=== PATIENT | male | born 1965 | race Caucasian/White ===

== ENCOUNTER 2019-04-21 20:32 | Inpatient (IN) | payer MEDICAID, SELFPAY ==
[2019-04-21 20:34] VITALS: BP 90/78; PULSE 72; RESP 18; TEMP 37.1; O2SAT 96; BMI 28.8
--- NOTE | 2019-04-21 21:36 | EKG12_ITS ---
Test Reason : DIZZY Blood Pressure : / mmHG Vent. Rate : 063 BPM Atrial Rate : 063 BPM P-R Int : 160 ms QRS Dur : 074 ms QT Int : 396 ms P-R-T Axes : 045 036 047 degrees QTc Int : 405 ms Normal sinus rhythm Low voltage QRS Borderline ECG Confirmed by KAELA VILLALTA, IVAN ([id number]), mapping editor ANJELICA FRIEDMAN ([id number]) on 04/23/2019 12:27:03 PM Referred By: Confirmed By:ALLAN SHERWOOD MD
--- NOTE | 2019-04-21 21:36 | CT_ITS ---
HISTORY:DIZZY X FEW DAYS. Hx of prior CVA, [place] with heart stent DIZZY X FEW DAYS. Hx of prior CVA, [place] with heart stent TECHNIQUE: Multiple axial images were obtained of the brain without intravenous contrast. A radiation dose optimization technique was used for this scan. IV Contrast dosage and agent: None. COMPARISON: None FINDINGS: # of images incl. paperwork: 246 INFARCT: None HEMORRHAGE: None PARENCHYMAL ATTENUATION:Normal for age MASS: None MIDLINE SHIFT: None BASAL CISTERNS: Patent VENTRICLES: Normal in size and configuration for age PARANASAL SINUSES:Mucous retention cystin the right maxillary sinus MASTOID AIR CELLS: Clear ORBITS:No acute pathology CALVARIUM: No acute pathology OTHER TISSUES: No acute pathology ASPECTS Score for Acute Strokes: 10 CT/Brain/Head without Contrast IMPRESSION: No acute intracranial pathology. If symptoms persist consider mri for further evaluation if clinically indicated. Individualized dose optimization techniques were used for this CT. at 2226 Reported and signed by: Yasmin Radford DO Electronically Signed: Yasmin Radford DO at 22:25 EDT Tel , Service support ,
--- NOTE | 2019-04-21 21:38 | RAD_ITS ---
HISTORY:dizziness dizziness EXAM: XR Chest 1 View: COMPARISON: None FINDINGS: # of images incl. paperwork: 1 LINES/DEVICES: None. LUNGS: Radiographically clear. No consolidation, edema or effusion. No pneumothorax. MEDIASTINUM AND CARDIOVASCULAR STRUCTURES: Cardiac silhouette not enlarged. BONES AND SOFT TISSUES: Unremarkable. RAD/Chest 1 View (Portable) IMPRESSION: No radiographic evidence of acute cardiopulmonary disease. at 2202 Reported and signed by: Yasmin Radford DO Electronically Signed: Yasmin Radford DO at 22:01 EDT Tel , Service support ,
[2019-04-21 22:03] VITALS: BP 101/89; BP 65/58; BP 83/53; PULSE 68; PULSE 72; PULSE 74
[2019-04-21 22:06] LABS: Absolute Lymphocyte Count 2.49 X10^3/ul (0.83-4.51); Absolute Neutrophil Count 6.9 X10^3/uL (2.0-7.7); Basophil# 0.04 X10^3/uL; Basophil% 0.4 % (0-1); Eosinophil# 0.13 X10^3/uL; Eosinophils% 1.2 % (0-5); Hematocrit 45.1 % (40-54); Hemoglobin 15.6 g/dl (13.0-16.5); Lymphocyte # 2.49 X10^3/ul (4.0); Lymphocyte % 23.4 % (19-41); Mean Corp Hgb Conc 34.6 g/gl (32-36); Mean Corpuscular Hgb 29.9 pg (27.0-32.0); Mean Corpuscular Volume 86.6 fL (80-94); Mean Platelet Vol. 10.4 fl (6.2-12.0); Monocyte# 1.04 X10^3/uL; Monocyte% 9.8 % (0-10); Neutrophil % 64.8 % (47-70); POSITIVE COUNT NO; POSITIVE DIFFERENTIAL NO; POSITIVE MORPHOLOGY NO; Platelet Count 248 K/mm3 (150-450); RBC Distribution Width CV 13.1 % (11.6-14.6); Red Blood Count 5.21 M/mm3 (4.6-6.2); White Blood Count 10.6 K/mm3 (4.4-11.0)
[2019-04-21 22:19] LABS: Anion Gap 9 (5-15); BUN 62 mg/dL (7-18); BUN/Creat Ratio 12.7 RATIO (10-20); Chloride 102 mmol/L (98-107); Creatinine, Serum 4.87 mg/dL (0.70-1.30); EST Glomerular Filtration Rate 13 mL/min (>60); Est Glom Filt Rate - Afr Amer 16 mL/min (>60); Estimated Creatinine Clearance 16.58 ml/min; Glucose 101 mg/dL (74-106); Potassium 4.4 mmol/L (3.5-5.1); Sodium Level 136 mmol/L (136-145)
[2019-04-21] MEDS: Meclizine HCl 25 MG Tablet PO (22:19)
--- NOTE | 2019-04-21 22:41 | ED.VISSUMM ---
- ER Visit Summary Date of Service: 04/21/19 Chief Complaint: Dizziness History of Present Illness: The patient is a 54 M presenting with dizziness. He states this has been ongoing for the past 3 days. He states he felt lightheaded with near syncope. He also complains of a spinning sensation. He denies chest pain. He has had mild shortness of breath with cough. He denies fever. Denies abdominal pain, nausea, vomiting, diarrhea. He denies headache. He has had bilateral upper and lower extremity paresthesias. He states he has been feeling anxious. He feels that he may be dehydrated. Denies other complaints. Physical Examination: Vitals are stable. Patient is afebrile. Alert no acute distress. HEENT exam is unremarkable. Neck is supple. Lungs are clear and equal bilaterally. Heart is regular rate and rhythm. Abdomen is soft nontender nondistended. Extremities are unremarkable. Skin is warm and dry. No focal neurologic deficit. Normal strength and sensation Remainder of exam is unremarkable. Emergency Department Course and Treatment: EKG is sinus rhythm rate of 63 with no acute ischemic changes. With orthostatic vital signs he was hypotensive with both lying and standing and normotensive with sitting. He was given IV fluids, meclizine. Chest x-ray shows no acute process. CT head shows no acute process. CBC is unremarkable. Chemistry shows BUN 62, creatinine 4.87. Troponin is negative. Patient states he has never been told in the past that he has any type of kidney problems. Discussed with the hospitalist for admission. Disposition: Admission Impression: Dizziness, GABRIELA This note was generated with [employer] dictation software. It may contain incorrect words, spelling, and punctuation that were not noted in review of the chart prior to signing ED Disposition - Plan for ED Patient: Referrals: Xochitl Horton DO [Primary Care Provider] -
--- NOTE | 2019-04-21 22:48 | PCM.HP.STD ---
Problem List (1) Hypotension Status: Acute Qualifiers: Hypotension type: unspecified hypotension type Qualified Code(s): I95.9 - Hypotension, unspecified (2) Hypertension Status: Chronic Qualifiers: Hypertension type: essential hypertension Qualified Code(s): I10 - Essential (primary) hypertension (3) CAD (coronary artery disease) Status: Chronic Qualifiers: Coronary Disease-Associated Artery/Lesion type: [place] artery [place] vs. transplanted heart: [place] heart Associated angina: angina presence unspecified Qualified Code(s): I25.10 - Atherosclerotic heart disease of [place] coronary artery without angina pectoris History of Present Illness Date of Admission: 04/22/19 Chief Complaint: Dizziness - 3 days The patient is a 54 year old M with past medical history of CAD status post DC, hypertension, history of CVA who gets most of his care in the [facility] comes in with complaints of dizziness ongoing for 3 days. Patient is in [place] visiting his girlfriend. He complains of feeling dizzy when he stands up and moves around. Denies any palpitations or chest pain or fever or chills. No sick contact. No nausea or vomiting or diarrhea. He admits to being outside for several hours in the heat mowing the yard. He admits to some having shortness of breath on exertion. He has not been drinking enough water His vitals were temp 98.8F, HR 72, BP 90/78, rr 18, Spo2 96% on room air. Patient was orthostatic positive from sitting to standing. His admitting blood work showed BUN of 62, creatinine 4.87. No labs to compare. EKG shows normal sinus rhythm, no acute ST-T changes. CT scan of the brain is negative. Chest X-ray shows no acute cardiopulmonary disease. Past Medical History Past Medical History (Chronic Problems): Chronic Problems Hypertension (Chronic) CAD (coronary artery disease) (Chronic) Allergies No Known Allergies Allergy (Verified 04/21/19 20:38) Home Medications: Ambulatory Orders Medication Instructions Recorded Aspirin E.C. [Ecotrin] 81 mg PO DAILY@0800 04/21/19 Atorvastatin Calcium 80 mg PO DAILY 04/21/19 Clopidogrel Bisulfate [Plavix] 75 mg PO DAILY 04/21/19 Lisinopril 20 mg PO DAILY 04/21/19 Metoprolol Succinate [Toprol Xl] 100 mg PO DAILY 04/21/19 Spironolactone 25 mg PO DAILY 04/21/19 Surgical History: appendectomy Psychiatric History: No pertinent psych hx Lives: Spouse/ Significant Other Smoking Status: Current every day smoker Tobacco Use: Cigarettes Alcohol: None Drugs: None Review of Systems Constitutional: Denies: Anorexia, Chills, Fever, Night Sweats, Malaise, Weakness, Weight Change Eyes: Denies: Blurred vision, Cataracts, Conjunctivae Inflammation, Pain, Redness HEENT: Denies: Difficulty Hearing, Difficulty Swallowing, Head Aches, Hearing Changes, Sinus Congestion, Sinus Drainage, Sore Throat Cardiovascular: Reports: Light Headedness. Denies: Chest Pain, Claudication, Orthopnea, Palpitations, Paroxysmal Noc. Dyspnea Respiratory: Denies: Cough, Hemoptysis, Shortness of breath at rest, Shortness of breath upon exertion, Sputum production Gastrointestinal: Denies: Abdominal Pain, Constipation, Hematemesis, Hematochezia, Nausea, Vomiting Genitourinary: Denies: Dysuria Musculoskeletal: Denies: Joint Pain, Joint stiffness, Joint swelling, Joint Tenderness Skin: Denies: Rash, Wounds Neurological: Denies: Difficulty swallowing, Focal weakness, Numbness, Tingling Psychiatric: Denies: Anxiety, Depression, Homicidal Ideations, Suicidal Ideations Hematologic/ Lymphatic: Denies: Easy Bruising, Easy Bleeding VTE Information - Inpt Only VTE Present on Admission: No VTE Pharm Prophylaxis ordered?: Yes Patient Problems: Active and Suspected Problems Hypotension (Acute) - Physical Exam General: Alert, Oriented x3, Cooperative, No apparent distress HEENT: Atraumatic, PERRLA, EOMI, Normocephalic Oral: Dry Mucosa Neck: Supple Lungs: Clear to auscultation, Normal air movement Cardiovascular: Regular rate, Regular Rhythm, Normal S1, Normal S2, No murmurs Abdomen: Bowel Sounds Present, Soft, Non Tender, Non-Distended, No Hepato-splenomegaly Extremities: No edema Skin: No rashes, No breakdown Musculoskeletal: No Tenderness to Palpation of Joints or Extremities Lymphatic: No Cervical, Supraclavicular, or Inguinal Adenopathy Neurological: Cranial nerves II-XII grossly intact, Neuro grossly intact Psych/Mental Status: Normal Affect, Appropriate Vital Signs Temp Pulse Resp BP Pulse Ox 98.8 F 68 18 65/58 L 96 04/21/19 20:34 04/21/19 22:03 04/21/19 20:34 04/21/19 22:03 04/21/19 20:34 Oxygen Delivery Method Room Air Weight: 85.91 kg Body Mass Index (BMI) 28.8 Laboratory Tests Past 24 Hrs 04/21/19 04/21/19 21:48 21:48 WBC 10.6 RBC 5.21 Hgb 15.6 Hct 45.1 MCV 86.6 MCH 29.9 MCHC 34.6 RDW 13.1 RDW Differential 42.0 Plt Count 248 MPV 10.4 Immature Gran % (Auto) 0.400 Neut % (Auto) 64.8 Lymph % (Auto) 23.4 [place] % (Auto) 9.8 Eos % (Auto) 1.2 Baso % (Auto) 0.4 Absolute Neuts (auto) 6.9 Absolute Lymphs (auto) 2.49 Total Counted Not Reportable Sodium 136 Potassium 4.4 Chloride 102 Carbon Dioxide 25.0 Anion Gap 9 BUN 62 H Creatinine 4.87 H Estim Creat Clear Calc 16.58 Est GFR (MDRD) Af Amer 16 L Est GFR (MDRD) Non-Af 13 L BUN/Creatinine Ratio 12.7 Glucose 101 Calcium 9.0 Troponin I < 0.015 Assessment/Plan All Active Problems Hypotension (Acute) 54 year old M with past medical history of CAD status post DC, hypertension, history of CVA who gets most of his care in the [facility] comes in with complaints of dizziness ongoing for 3 days. 1. Hypotension secondary to dehydration, poor p.o. intake, blood pressure medications, being in the heat or days Less likely to be cardiac, history of CAD status post MIs, unknown EF. EKG shows no acute ST-T changes Plan: Admit to PCU, continue IV fluids, 2D echo, trend troponins, 2. Acute kidney injury, pre-renal from dehydration and ACEI use, bladder scan showed bladder volume of 49 FENA 0.57, will continue on IVF, 3. Hypertension, BP meds on hold for now, will continue to monitor 4. CAD s/p MIs, CVA, will get records from [facility], continue on aspirin, Plavix, statin 5. Nicotine dependence, on replacement 6. DVT PPx- Heparin SC Code Visit Inpatient E&M: 69030 Init Hosp L3
[2019-04-21 22:49] VITALS: BP 73/40; PULSE 70; RESP 18
[2019-04-21] MEDS: 0.9% Normal Saline 1,000 ML 999 ML IV (23:18)
[2019-04-21 23:41] VITALS: BMI 28.8; BMI 29.5
--- NOTE | 2019-04-21 23:48 | NURSING ---
PATIENT STATES HIS PHARMACY IS [facility]. CANNOT FIND IN ADMISSION SEARCH.
[2019-04-21 23:49] VITALS: BP 89/54; PULSE 66; RESP 18; TEMP 36.6; O2SAT 99
[2019-04-22] VITALS (11 sets, daily range): BP systolic 91–106; BP diastolic 47–61; PULSE 54–71; RESP 14–18; TEMP 36.6–36.9; O2SAT 95–98
[2019-04-22] MEDS: 0.9% Normal Saline 1,000 ML 150 ML IV ×4 (00:16→22:19)
[2019-04-22 02:14] LABS: Urine Sodium 67 mmol/L (Not Establ.)
--- NOTE | 2019-04-22 02:54 | ECHOCS_ITS ---
Reason For Study: HYPOTENSION Procedure This was a 2D Doppler, Color Flow transthoracic echocardiogram. The study was technically limited. The study was technically difficult. Exam performed portable in patient room. Left Ventricle Normal size and thickness. The estimated ejection fraction is 60 %. No evidence for diastolic dysfunction. No regional wall motion abnormalities noted. Right Ventricle Normal RV size. Normal systolic function. Atria Normal left atrium. Normal right atrium. Mitral Valve There is no stenosis. No mitral valve insufficiency. Tricuspid Valve There is no tricuspid stenosis. Trivial tricuspid valve insufficiency. Pulmonary artery systolic pressure is 40 mmHg. Aortic Valve There is no aortic stenosis. No aortic valve insufficiency. Pulmonic Valve There is no pulmonic valvular stenosis. No pulmonic valve insufficiency. Great Vessels Normal aortic root. Pericardium/Pleural No pericardial effusion. Medication Diluted definity 4ml given slow IV push to enhance endocardial definition. MMode/2D Measurements & Calculations LVIDd: 4.8 cm IVSd: 1.0 cm Ao root diam: 2.9 cm LVIDs: 3.2 cm LVPWd: 1.1 cm RVDd: 3.6 cm FS: 33.6 % LAV(MOD-bp): 37.8 ml LVAd ap4: 32.7 cm2 SV(MOD-sp4): 56.8 ml LAV(MOD-bp) Indexed: 18.7 ml/m2 EDV(MOD-sp4): 107.5 ml LAV(MOD-sp2): 37.1 ml EDV(sp4-el): 113.5 ml LAV(MOD-sp4): 35.5 ml LVAs ap4: 20.0 cm2 ESV(MOD-sp4): 50.7 ml ESV(sp4-el): 52.7 ml EF(MOD-sp4): 52.8 % EF(sp4-el): 53.5 % SV(sp4-el): 60.8 ml LA A4 area: 14.2 cm2 LA dimension(2D): 3.3 cm RA A4 area: 16.3 cm2 Time Measurements MV dec time: 0.26 sec Doppler Measurements & Calculations MV E max arnold: 83.5 cm/sec Lat Peak E' Arnold: 10.7 cm/sec Med Peak E' Arnold: 8.5 cm/sec MV A max arnold: 75.2 cm/sec E/E' lat: 7.8 E/E' med: 9.8 MV E/A: 1.1 Ao V2 max: 113.4 cm/sec LV V1 max: 103.8 cm/sec TR max arnold: 277.4 cm/sec Ao max P.2 mmHg LV V1 max P.3 mmHg TR max P.9 mmHg Interpretation Summary Diluted definity 4ml given slow IV push to enhance endocardial definition. The estimated ejection fraction is 60 %. No evidence for diastolic dysfunction. The study was technically difficult. Ordering Physician: Vijaya Mohan Referring Physician: KRISTOFER COREA Performed By: Jess Brooks, YOAN, RVT
[2019-04-22] MEDS: Heparin Injection (Vial) 5,000 UNIT/ML VIAL 5000 UNIT SC ×3 (05:14→22:02)
[2019-04-22 07:37] LABS: ALB/GLOB Ratio 0.9 RATIO (0.9-2.4); AST(SGOT) 19 U/L (15-37); Alanine Aminotransfer ALT/SGPT 23 U/L (16-61); Albumin, Serum 2.9 g/dL (3.2-5.0); Alkaline Phosphatase 80 U/L (45-117); Anion Gap 4 (5-15); BUN 59 mg/dL (7-18); BUN/Creat Ratio 18.9 RATIO (10-20); Calcium,Total 7.7 mg/dL (8.5-10.1); Chloride 111 mmol/L (98-107); Cholesterol 112 mg/dL (200); Creatinine, Serum 3.12 mg/dL (0.70-1.30); EST Glomerular Filtration Rate 22 mL/min (>60); Est Glom Filt Rate - Afr Amer 27 mL/min (>60); Estimated Creatinine Clearance 25.88 ml/min; Globulin 3.4 g/dL (2.2-4.2); Glucose 106 mg/dL (74-106); High Density Lipoprotein 21 mg/dL; Potassium 4.7 mmol/L (3.5-5.1); Protein, Total 6.3 g/dL (6.4-8.2); Sodium Level 140 mmol/L (136-145); Triglycerides 142 mg/dL; Very Low Density Lipoprotein 28 mg/dL (5-40)
[2019-04-22 07:56] LABS: Absolute Lymphocyte Count 2.44 X10^3/ul (0.83-4.51); Absolute Neutrophil Count 5.2 X10^3/uL (2.0-7.7); Basophil# 0.03 X10^3/uL; Basophil% 0.3 % (0-1); Eosinophil# 0.16 X10^3/uL; Eosinophils% 1.8 % (0-5); Hematocrit 38.6 % (40-54); Hemoglobin 12.9 g/dl (13.0-16.5); Lymphocyte # 2.44 X10^3/ul (4.0); Lymphocyte % 27.7 % (19-41); Mean Corp Hgb Conc 33.4 g/gl (32-36); Mean Corpuscular Hgb 29.4 pg (27.0-32.0); Mean Corpuscular Volume 87.9 fL (80-94); Mean Platelet Vol. 10.6 fl (6.2-12.0); Monocyte# 0.94 X10^3/uL; Monocyte% 10.7 % (0-10); Neutrophil # 5.22 X10^3/uL (2.7-7.7); Neutrophil % 59.2 % (47-70); Platelet Count 209 K/mm3 (150-450); RBC Distribution Width CV 13.2 % (11.6-14.6); RBC Distribution Width SD 42.4 fl (35.1-43.9); Red Blood Count 4.39 M/mm3 (4.6-6.2); White Blood Count 8.8 K/mm3 (4.4-11.0)
[2019-04-22 08:02] LABS: POSITIVE COUNT NO; POSITIVE DIFFERENTIAL NO; POSITIVE MORPHOLOGY NO
--- NOTE | 2019-04-22 08:29 | US_ITS ---
HISTORY:GABRIELA Ultrasound kidneys No priors Findings: The right kidney measures 10.9 x 4.7 x 4.6 cm. The cortex is preserved measuring 1.4 cm. There is no evidence of hydronephrosis or nephrolithiasis. There is a peripelvic cyst measuring 1.6 x 1.5 x 1.5 cm. Vascular flow is seen within the right kidney The left kidney measures 10.3 x 4.7 x 5.2 cm with cortex measuring 1.4 cm. No hydronephrosis or nephrolithiasis. There is vascular flow. Bladder volume is 81.09. The wall is mildly thickened measuring 3.4 mm however this may be secondary to incomplete distention. Correlate clinically for cystitis Bilateral ureteral jets are noted US/Kidney and Bladder IMPRESSION: Right renal peripelvic cyst Slightly thickened bladder wall which may be secondary to poor distention. Correlate clinically for cystitis at 1826 Reported and signed by: Yasmin Radford DO Electronically Signed: Yasmin Radford DO at 18:25 EDT Tel , Service support ,
[2019-04-22] MEDS: Aspirin E.C. 81 MG Tablet PO (10:58)
[2019-04-22] MEDS: Clopidogrel Bisulfate 75 MG Tablet PO (10:58)
--- NOTE | 2019-04-22 11:17 | PCM.CONS.R ---
Problem List (1) Acute kidney failure Status: Acute Consultation - Renal PCP/ Referring MD: Requesting physician: [] Primary care physician: Xochitl Horton DO - History of Present Illness History of Present Illness: The patient is a 54 year old M PMH of CAD with [place] , HTN, CVA. Pt presented with h/o 3 days of dizziness when he stands up and moves around. In ED he was found to have + orthostatic VS along with GABRIELA with Cr up to 4.8 mg/dL. Pt was on aldactone and lisinopril at home Pt received 2.5 L of NS in ED and kept on NS at 150 cc /hour. Home BP meds were stopped Renal team was consulted for GABRIELA. Unknown if the patient has CKD. Pt denied h/o of CKD Pt denied NSIADs use. Admitted being outside in [place] a lot lately. No recent IV contrast exposure No skin rash. No joint pain. No edema No urinary obstructive symptoms ROS: 12 systems review is negative today] - Allergies Allergies: Allergies No Known Allergies Allergy (Verified 04/21/19 20:38) - Current Medications Current Medications: Current Medications Acetaminophen (Tylenol) 650 mg PO Q6H PRN PRN PRN Reason: Mild pain 1-3/Temp > 100.7 F Albuterol Sulfate (Ventolin Aerosols) 2.5 mg INHALATION Q2H PRN PRN PRN Reason: SOB/Wheezing Aspirin (Ecotrin) 81 mg PO DAILY@0800 [facility] Last Admin: 04/22/19 10:58 Dose: 81 mg Documented by: Atorvastatin Calcium (Lipitor) 80 mg PO DAILY@2200 [facility] Clopidogrel Bisulfate (Plavix) 75 mg PO DAILY [facility] Last Admin: 04/22/19 10:58 Dose: 75 mg Documented by: Heparin Sodium (Porcine) (Heparin Na) 5,000 unit SC Q8 [facility] Last Admin: 04/22/19 05:14 Dose: 5,000 unit Documented by: Sodium Chloride () 1,000 mls @ 150 mls/hr IV .Q6H40M [facility] Last Admin: 04/22/19 07:11 Dose: 150 mls/hr Documented by: Morphine Sulfate () 1 mg IV Q4H PRN PRN PRN Reason: Severe Pain (7-10/10) Nicotine (Nicoderm Cq (Pbkc)) 21 mg TRANSDERM. DAILY [facility] Last Admin: 04/22/19 10:58 Dose: Not Given Documented by: Nicotine Polacrilex ([place] Nicotine (Bkc)) 2 mg PO Q2H PRN PRN PRN Reason: Nicotine Craving Nitroglycerin (Nitrostat) 0.4 mg SUBLINGUAL Q5M PRN PRN Reason: CARDIAC/CHEST PAIN Sodium Chloride () 10 - 40 ml IV UD PRN PRN Reason: SALINE FLUSH - Past Medical History Past Medical History (Chronic Problems): Chronic Problems Hypertension (Chronic) CAD (coronary artery disease) (Chronic) - Past Surgical History Surgical History: appendectomy - Social History Smoking Status: Current every day smoker Alcohol: None Drugs: None Patient Problems: Active and Suspected Problems Hypotension (Acute) Acute kidney failure (Acute) - Physical Exam General: Alert, Oriented x3 HEENT: Atraumatic Oral: Moist Mucosa Neck: Supple, No JVD Lungs: Clear to auscultation, Normal air movement, No rhonchi, No wheeze, No rales Cardiovascular: Regular rate, Regular Rhythm, Normal S1, Normal S2 Abdomen: Bowel Sounds Present, Soft, Non Tender, Non-Distended Extremities: No clubbing, No cyanosis, No edema Skin: No rashes Musculoskeletal: No Tenderness to Palpation of Joints or Extremities Lymphatic: No Cervical, Supraclavicular, or Inguinal Adenopathy Neurological: Cranial nerves II-XII grossly intact, Neuro grossly intact Psych/Mental Status: Normal Affect Vital Signs Temp Pulse Resp BP Pulse Ox 97.8 F 54 L 16 106/51 L 96 04/22/19 10:56 04/22/19 10:56 04/22/19 10:56 04/22/19 10:56 04/22/19 10:56 Oxygen Delivery Method Room Air Weight: 88.3 kg Body Mass Index (BMI) 29.5 Intake and Output for Last 24 Hours 04/20/19 04/21/19 04/22/19 23:59 23:59 23:59 Intake Total 1597.2 / 1597.2 Output Total 400 / 400 Balance 1197.2 / 1197.2 Laboratory Tests Past 24 Hrs 04/21/19 04/21/19 04/22/19 21:48 21:48 01:35 WBC 10.6 RBC 5.21 Hgb 15.6 Hct 45.1 MCV 86.6 MCH 29.9 MCHC 34.6 RDW 13.1 RDW Differential 42.0 Plt Count 248 MPV 10.4 Immature Gran % (Auto) 0.400 Neut % (Auto) 64.8 Lymph % (Auto) 23.4 [place] % (Auto) 9.8 Eos % (Auto) 1.2 Baso % (Auto) 0.4 Absolute Neuts (auto) 6.9 Absolute Lymphs (auto) 2.49 Total Counted Not Reportable Sodium 136 Potassium 4.4 Chloride 102 Carbon Dioxide 25.0 Anion Gap 9 BUN 62 H Creatinine 4.87 H Estim Creat Clear Calc 16.58 Est GFR (MDRD) Af Amer 16 L Est GFR (MDRD) Non-Af 13 L BUN/Creatinine Ratio 12.7 Glucose 101 Calcium 9.0 Total Bilirubin AST ALT Alkaline Phosphatase Troponin I < 0.015 Total Protein Albumin Globulin Albumin/Globulin Ratio Triglycerides Cholesterol LDL Cholesterol VLDL Cholesterol HDL Cholesterol Ur Random Sodium Urine Creatinine 421.00 04/22/19 04/22/19 04/22/19 01:35 07:10 07:10 WBC 8.8 RBC 4.39 L Hgb 12.9 L Hct 38.6 L MCV 87.9 MCH 29.4 MCHC 33.4 RDW 13.2 RDW Differential 42.4 Plt Count 209 MPV 10.6 Immature Gran % (Auto) 0.300 Neut % (Auto) 59.2 Lymph % (Auto) 27.7 [place] % (Auto) 10.7 H Eos % (Auto) 1.8 Baso % (Auto) 0.3 Absolute Neuts (auto) 5.2 Absolute Lymphs (auto) 2.44 Total Counted Not Reportable Sodium 140 Potassium 4.7 Chloride 111 H Carbon Dioxide 25.0 Anion Gap 4 L BUN 59 H Creatinine 3.12 H Estim Creat Clear Calc 25.88 Est GFR (MDRD) Af Amer 27 L Est GFR (MDRD) Non-Af 22 L BUN/Creatinine Ratio 18.9 Glucose 106 Calcium 7.7 L Total Bilirubin 0.20 AST 19 ALT 23 Alkaline Phosphatase 80 Troponin I Total Protein 6.3 L Albumin 2.9 L Globulin 3.4 Albumin/Globulin Ratio 0.9 Triglycerides 142 Cholesterol 112 LDL Cholesterol 63 VLDL Cholesterol 28 HDL Cholesterol 21 L Ur Random Sodium 67 Urine Creatinine Assessment/Plan All Active Problems Hypotension (Acute) Acute kidney failure (Acute) 1- GABRIELA . Unknown if the patient has CKD at baseline GABRIELA is most probably prerenal from insensible fluid loss, low BP Cr peaked at 4.8 mg/dL. 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 continue holding BP meds Thank you for the consult. Renal team will continue to follow Please call if any question at [phone] Will d/w Dr. Lise Hernandez MD
--- NOTE | 2019-04-22 12:32 | CASEMGMT ---
This RN CM to room to complete CM assessment at this time and pt is sleeping without distress at this time. Pt does not awaken to knock on the door or verbal stimuli at this time. Will attempt again later. [place] RN CM
--- NOTE | 2019-04-22 13:02 | PCM.PROGNOTE ---
<Wayne Balbuena - Last Filed: 04/22/19 13:02> Patient Problems: Active and Suspected Problems Hypotension (Acute) Acute kidney failure (Acute) Subjective: No further LH/Dizziness. Urine is becoming more clear - observed at highlighter yellow. No fever/chills. No abdominal pain. Renal function and BP improving. Pt states he knew he was dehydrated yesterday. - Physical Exam General: Alert, Oriented x3, Cooperative HEENT: Atraumatic, PERRLA, EOMI, Normocephalic Neck: Supple, No JVD, Negative Carotid Bruits Lungs: Clear to auscultation, Normal air movement Cardiovascular: Regular rate, No murmurs Abdomen: Bowel Sounds Present, Soft, Non Tender Extremities: No edema, Capillary Refill Less than 3 Seconds Skin: No rashes, No breakdown Musculoskeletal: No Tenderness to Palpation of Joints or Extremities Neurological: Cranial nerves II-XII grossly intact Psych/Mental Status: Normal Affect, Appropriate, Alert and oriented to time, place, person, mood and affect Vital Signs Temp Pulse Resp BP Pulse Ox 97.8 F 54 L 16 106/51 L 96 04/22/19 10:56 04/22/19 10:56 04/22/19 10:56 04/22/19 10:56 04/22/19 10:56 Oxygen Delivery Method Room Air Weight: 194 lb 10.691 oz Body Mass Index (BMI) 29.5 Intake and Output for Last 24 Hours 04/20/19 04/21/19 04/22/19 23:59 23:59 23:59 Intake Total 2688.2 / 2688.2 Output Total 725 / 725 Balance 1963.2 / 1963.2 Laboratory Tests Past 24 Hrs 04/21/19 04/21/19 04/22/19 21:48 21:48 01:35 WBC 10.6 RBC 5.21 Hgb 15.6 Hct 45.1 MCV 86.6 MCH 29.9 MCHC 34.6 RDW 13.1 RDW Differential 42.0 Plt Count 248 MPV 10.4 Immature Gran % (Auto) 0.400 Neut % (Auto) 64.8 Lymph % (Auto) 23.4 [place] % (Auto) 9.8 Eos % (Auto) 1.2 Baso % (Auto) 0.4 Absolute Neuts (auto) 6.9 Absolute Lymphs (auto) 2.49 Total Counted Not Reportable Sodium 136 Potassium 4.4 Chloride 102 Carbon Dioxide 25.0 Anion Gap 9 BUN 62 H Creatinine 4.87 H Estim Creat Clear Calc 16.58 Est GFR (MDRD) Af Amer 16 L Est GFR (MDRD) Non-Af 13 L BUN/Creatinine Ratio 12.7 Glucose 101 Calcium 9.0 Total Bilirubin AST ALT Alkaline Phosphatase Troponin I < 0.015 Total Protein Albumin Globulin Albumin/Globulin Ratio Triglycerides Cholesterol LDL Cholesterol VLDL Cholesterol HDL Cholesterol Ur Random Sodium Urine Creatinine 421.00 04/22/19 04/22/19 04/22/19 01:35 07:10 07:10 WBC 8.8 RBC 4.39 L Hgb 12.9 L Hct 38.6 L MCV 87.9 MCH 29.4 MCHC 33.4 RDW 13.2 RDW Differential 42.4 Plt Count 209 MPV 10.6 Immature Gran % (Auto) 0.300 Neut % (Auto) 59.2 Lymph % (Auto) 27.7 [place] % (Auto) 10.7 H Eos % (Auto) 1.8 Baso % (Auto) 0.3 Absolute Neuts (auto) 5.2 Absolute Lymphs (auto) 2.44 Total Counted Not Reportable Sodium 140 Potassium 4.7 Chloride 111 H Carbon Dioxide 25.0 Anion Gap 4 L BUN 59 H Creatinine 3.12 H Estim Creat Clear Calc 25.88 Est GFR (MDRD) Af Amer 27 L Est GFR (MDRD) Non-Af 22 L BUN/Creatinine Ratio 18.9 Glucose 106 Calcium 7.7 L Total Bilirubin 0.20 AST 19 ALT 23 Alkaline Phosphatase 80 Troponin I Total Protein 6.3 L Albumin 2.9 L Globulin 3.4 Albumin/Globulin Ratio 0.9 Triglycerides 142 Cholesterol 112 LDL Cholesterol 63 VLDL Cholesterol 28 HDL Cholesterol 21 L Ur Random Sodium 67 Urine Creatinine Medical Necessity - Tobacco Use Smoking Status: Current every day smoker Tobacco Use: Cigarettes Assessment/Plan All Active Problems Hypotension (Acute) Acute kidney failure (Acute) 1. GABRIELA 2/2 dehydration + antihypertensives - hold orals. Continue IV fluids. Good output. Renal US pending. Nephro following. CT brain neg. Symptoms resolving. Orthos + at time of admission. Recheck in AM. 2. CAD - hx MA. continue asa/statin/plavix 3. HTN - as above 4. Nicotine abuse - patch DVT ppx: heparin DC planning: likely home tomorrow no needs This patient was seen by Wayne Balbuena PA-C under the supervision of Dr. Junior. <Shani Junior Francisca - Last Filed: 04/22/19 16:20> - Physical Exam Vital Signs Temp Pulse Resp BP Pulse Ox 97.8 F 66 16 106/51 L 96 04/22/19 10:56 04/22/19 15:00 04/22/19 10:56 04/22/19 10:56 04/22/19 10:56 Oxygen Delivery Method Room Air Weight: 194 lb 10.691 oz Body Mass Index (BMI) 29.5 Intake and Output for Last 24 Hours 04/20/19 04/21/19 04/22/19 23:59 23:59 23:59 Intake Total 2688.2 / 2688.2 Output Total 725 / 725 Balance 1963.2 / 1963.2 Laboratory Tests Past 24 Hrs 04/21/19 04/21/19 04/22/19 21:48 21:48 01:35 WBC 10.6 RBC 5.21 Hgb 15.6 Hct 45.1 MCV 86.6 MCH 29.9 MCHC 34.6 RDW 13.1 RDW Differential 42.0 Plt Count 248 MPV 10.4 Immature Gran % (Auto) 0.400 Neut % (Auto) 64.8 Lymph % (Auto) 23.4 [place] % (Auto) 9.8 Eos % (Auto) 1.2 Baso % (Auto) 0.4 Absolute Neuts (auto) 6.9 Absolute Lymphs (auto) 2.49 Total Counted Not Reportable Sodium 136 Potassium 4.4 Chloride 102 Carbon Dioxide 25.0 Anion Gap 9 BUN 62 H Creatinine 4.87 H Estim Creat Clear Calc 16.58 Est GFR (MDRD) Af Amer 16 L Est GFR (MDRD) Non-Af 13 L BUN/Creatinine Ratio 12.7 Glucose 101 Calcium 9.0 Total Bilirubin AST ALT Alkaline Phosphatase Troponin I < 0.015 Total Protein Albumin Globulin Albumin/Globulin Ratio Triglycerides Cholesterol LDL Cholesterol VLDL Cholesterol HDL Cholesterol Ur Random Sodium Urine Creatinine 421.00 04/22/19 04/22/19 04/22/19 01:35 07:10 07:10 WBC 8.8 RBC 4.39 L Hgb 12.9 L Hct 38.6 L MCV 87.9 MCH 29.4 MCHC 33.4 RDW 13.2 RDW Differential 42.4 Plt Count 209 MPV 10.6 Immature Gran % (Auto) 0.300 Neut % (Auto) 59.2 Lymph % (Auto) 27.7 [place] % (Auto) 10.7 H Eos % (Auto) 1.8 Baso % (Auto) 0.3 Absolute Neuts (auto) 5.2 Absolute Lymphs (auto) 2.44 Total Counted Not Reportable Sodium 140 Potassium 4.7 Chloride 111 H Carbon Dioxide 25.0 Anion Gap 4 L BUN 59 H Creatinine 3.12 H Estim Creat Clear Calc 25.88 Est GFR (MDRD) Af Amer 27 L Est GFR (MDRD) Non-Af 22 L BUN/Creatinine Ratio 18.9 Glucose 106 Calcium 7.7 L Total Bilirubin 0.20 AST 19 ALT 23 Alkaline Phosphatase 80 Troponin I Total Protein 6.3 L Albumin 2.9 L Globulin 3.4 Albumin/Globulin Ratio 0.9 Triglycerides 142 Cholesterol 112 LDL Cholesterol 63 VLDL Cholesterol 28 HDL Cholesterol 21 L Ur Random Sodium 67 Urine Creatinine Assessment/Plan Patient seen by Wayne Balbuena PA-C under my supervision Patient was admitted with a complaint of weakness and lightheadedness. He was found to be hypotensive and also had severe GABRIELA with creatinine around 4.57. This is thought to be due to dehydration as patient had been out in the hot weather and also taking his blood pressure medications. Orthostatics was positive. He has been hydrated with IV fluids. Patient seen and examined this morning. He has no complaints and feels much better. Review of systems otherwise negative. Labs and vitals reviewed. o/e: Vital Signs Height 5 ft 8 in Weight: 194 lb 10.691 oz Weight in Pounds 194.7 lbs Pulse Ox 96 Temperature 97.8 F Pulse Rate [Standing] 72 Pulse Rate [Sitting] 74 Pulse Rate [Lying] 68 Pulse Rate 66 Respiratory Rate 16 Blood Pressure [Standing] 83/53 Blood Pressure [Sitting] 101/89 Blood Pressure [Lying] 65/58 Blood Pressure 106/51 Blood Pressure Position Supine General: Alert, Oriented x3, Cooperative HEENT: Atraumatic, PERRLA, EOMI, Normocephalic Neck: Supple, No JVD, Negative Carotid Bruits Lungs: Clear to auscultation, Normal air movement Cardiovascular: Regular rate, No murmurs Abdomen: Bowel Sounds Present, Soft, Non Tender, no organomegaly Extremities: No edema, Capillary Refill Less than 3 Seconds Skin: No rashes, No breakdown Musculoskeletal: No Tenderness to Palpation of Joints or Extremities Neurological: Cranial nerves II-XII grossly intact Psych/Mental Status: Normal Affect, Appropriate, Alert and oriented to time, place, person, mood and affect Plan is continue hydration with IV fluids. Blood pressures up to 106/51. Creatinine has trended down from four-point 8/7-3.12. Caitlin was less than 1 indicating that it was a prerenal problem. Fall precautions. Continue checking orthostatics. Nephrology on board. Continue holding antihypertensives. 2D echocardiogram done today showed EF of 60% with no evidence of diastolic dysfunction and no regional motion abnormalities. Renal ultrasound pending. Rest of management as per Wayne Balbuena PA-C's note which I have reviewed and endorsed. Code Visit Inpatient E&M: 43947 Subs Hosp L2
--- NOTE | 2019-04-22 13:57 | CASEMGMT ---
ELEUTERIO HOPKINS assessment: Face to Face with patient for initial transition planning/care coordination assessment. ELEUTERIO HOPKINS introduced self and role at [facility], pt voices understanding and consents to assessment at this time. Pt is sitting up in bed in no distress at this time. Pt is A/Ox4 at this time and answers all questions appropriately at this time. Care providers, pharmacy, and demographics verified at this time. PCP: Xochitl Horton Specialists: Cardiologists at [facility] in [place] but states has not seen 'in awhile.' Preferred Pharmacy: [facility] retail pharmacy, this pharmacy is not in our [employer] system at this time and cannot be added to the chart at this time. Insurance: [employer] but pt states that he is signed up for MCR and it will be kicking in 'soon.' Prescription Benefit: Masood, pt is unsure if he will have a MCR D plan at this time. Living Will/HPOA: Pt states does not have LW/HPOA and declines info at this time. LNOK: Lauryn Peres, mother Living Arrangements: Pt states lives in a 'trailer' with 3 steps in and states no concerns at home at this time. Pt states is independent with ADL's. Transportation: Pt states drives self and states no transportation concerns at this time. DME/HHC: Pt states no current DME or need for any at this time. Pt states no hx of HHC or SNF in the past. Pt states no concerns with going home at time of discharge. Pt is disabled. Pt states smokes about a pack/day and drinks ETOH occasionally. Pt states no further questions/concerns/needs at this time. CM to follow for any further discharge planning/needs. Advised pt to ask for CM if any further questions/concerns/needs arise, voices understanding. Pt Goal: Home [place] ELEUTERIO HOPKINS
[2019-04-22] MEDS: Atorvastatin Calcium 80 MG Tablet PO (22:02)
[2019-04-23 03:00] VITALS: PULSE 53
[2019-04-23 04:30] VITALS: BP 105/70; BP 113/72; BP 119/63; PULSE 64; PULSE 65; PULSE 66; PULSE 70; RESP 16; TEMP 36.7; O2SAT 95
[2019-04-23] MEDS: 0.9% Normal Saline 1,000 ML 150 ML IV (05:00)
[2019-04-23] MEDS: Heparin Injection (Vial) 5,000 UNIT/ML VIAL 5000 UNIT SC (05:01)
[2019-04-23 06:23] LABS: Anion Gap 5 (5-15); BUN 35 mg/dL (7-18); BUN/Creat Ratio 24.3 RATIO (10-20); Calcium,Total 7.8 mg/dL (8.5-10.1); Chloride 115 mmol/L (98-107); Creatinine, Serum 1.44 mg/dL (0.70-1.30); EST Glomerular Filtration Rate 54 mL/min (>60); Est Glom Filt Rate - Afr Amer 65 mL/min (>60); Estimated Creatinine Clearance 56.08 ml/min; Glucose 85 mg/dL (74-106); Potassium 4.7 mmol/L (3.5-5.1); Sodium Level 142 mmol/L (136-145)
[2019-04-23 07:28] VITALS: PULSE 56
[2019-04-23 09:47] VITALS: BP 96/56; PULSE 59; RESP 18; TEMP 36.8; O2SAT 96
[2019-04-23] MEDS: Aspirin E.C. 81 MG Tablet PO (09:52)
[2019-04-23] MEDS: Clopidogrel Bisulfate 75 MG Tablet PO (09:52)
--- NOTE | 2019-04-23 10:57 | DCINST_ITS ---
- Discharge Diagnoses Current Active Problems: Current Active and Chronic Problems Hypotension (Acute) Hypertension (Chronic) CAD (coronary artery disease) (Chronic) Acute kidney failure (Acute) You will use the following diet at home:: Cardiac Your food should be the consistency of: Regular Your liquids should be the consistency of: Regular/Thin Discharge Activity: Return to Normal Activity Allergies/Adverse Reactions: Allergies No Known Allergies Allergy (Verified 04/21/19 20:38) Medications to take at Discharge Aspirin E.C. [Ecotrin] 81 mg PO DAILY@0800 04/21/19 Atorvastatin Calcium 80 mg PO DAILY 04/21/19 Clopidogrel Bisulfate [Plavix] 75 mg PO DAILY 04/21/19 Acyclovir [Zovirax] 1 applic TOPICAL 5X/DAY tube 04/23/19 Primary Care Physician: Xochitl Horton DO [Primary Care Provider] - Please follow up with your Primary Care Physician in: 2 weeks Test Results: Test results from this visit will be discussed in further detail at your follow- up appointment, if applicable. Please Follow Up With: Rakesh Hernandez MD When: 2 weeks Proposed Discharge Date: 04/23/19
--- NOTE | 2019-04-23 15:18 | DS.PCM_ITS ---
<Wayne Balbuena - Last Filed: 04/23/19 15:18> Discharge Date and Diagnosis Date of Admission: 04/22/19 Date of Discharge: 04/23/19 - Primary Discharge Diagnosis GABRIELA 2/2 dehydration, BP meds CAD HTN Nicotine abuse - Secondary Discharge Diagnosis Chronic Problems Hypertension (Chronic) CAD (coronary artery disease) (Chronic) Hospital Course and Treatment Imaging Results: CT/Brain/Head without Contrast IMPRESSION: No acute intracranial pathology. If symptoms persist consider mri for further evaluation if clinically indicated. Individualized dose optimization techniques were used for this CT. RAD/Chest 1 View (Portable) IMPRESSION: No radiographic evidence of acute cardiopulmonary disease. Echo: Interpretation Summary Diluted definity 4ml given slow IV push to enhance endocardial definition. The estimated ejection fraction is 60 %. No evidence for diastolic dysfunction. The study was technically difficult. US/Kidney and Bladder IMPRESSION: Right renal peripelvic cyst Slightly thickened bladder wall which may be secondary to poor distention. Correlate clinically for cystitis Consults: [facility]phrology - [facility] Operations: None Procedures: 2-D Echocardiogram Summary of Care Provided: Hospital Course: The patient is a 54 year old M with pmhx HTN, CAD, who presented to the ER with c/o dizziness for 3 days. This was worse with standing. He reported being outside in the heat for several hours mowing and he admitted that he was not drinking enough water. BUN and Cr were markedly elevated and he was hypotensive with positive orthos. He was started on fluid, his antihypertensives were discontinued, and he was admitted on tele. Echo was obtained, renal US was obtained, nephrology consult was obtained. He was admitted to the PCU on tele. No events on tele. His renal function, urinary output, and sensations improved well with IV fluids. He continued to have borderline low BP so we did not resume his BP meds at this time. He was discharged home in stable condition and advised to follow up with his PCP in 2 weeks and nephrology in 2 weeks. This patient was seen by Wayne Balbuena PA-C under the supervision of Dr. Junior. [] - Physical Exam General: Alert, Oriented x3, Cooperative HEENT: Atraumatic, PERRLA, EOMI, Normocephalic Neck: Supple, No JVD, Negative Carotid Bruits Lungs: Clear to auscultation, Normal air movement Cardiovascular: Regular rate, No murmurs Abdomen: Bowel Sounds Present, Soft, Non Tender Extremities: No edema, Capillary Refill Less than 3 Seconds Skin: No rashes, No breakdown Musculoskeletal: No Tenderness to Palpation of Joints or Extremities Neurological: Cranial nerves II-XII grossly intact Psych/Mental Status: Normal Affect, Appropriate, Alert and oriented to time, place, person, mood and affect Vital Signs Temp Pulse Resp BP Pulse Ox 98.3 F 59 L 18 96/56 L 96 04/23/19 09:47 04/23/19 09:47 04/23/19 09:47 04/23/19 09:47 04/23/19 09:47 Oxygen Delivery Method Room Air Weight: 205 lb 11.06 oz Body Mass Index (BMI) 29.5 Intake and Output for Last 24 Hours 04/21/19 04/22/19 04/23/19 23:59 23:59 23:59 Intake Total 4410.2 / 4410.2 848 / 848 Output Total 1725 / 1725 850 / 850 Balance 2685.2 / 2685.2 -2 / -2 Laboratory Tests Past 24 Hrs 04/23/19 05:30 Sodium 142 Potassium 4.7 Chloride 115 H Carbon Dioxide 22.0 Anion Gap 5 BUN 35 H Creatinine 1.44 H Estim Creat Clear Calc 56.08 Est GFR (MDRD) Af Amer 65 Est GFR (MDRD) Non-Af 54 L BUN/Creatinine Ratio 24.3 H Glucose 85 Calcium 7.8 L Discharge Diet: No Restrictions Discharge Activity: Return to Normal Activity Home Medications: Medications to take at Discharge Aspirin E.C. [Ecotrin] 81 mg PO DAILY@0800 04/21/19 Atorvastatin Calcium 80 mg PO DAILY 04/21/19 Clopidogrel Bisulfate [Plavix] 75 mg PO DAILY 04/21/19 Acyclovir [Zovirax] 1 applic TOPICAL 5X/DAY #1 tube 04/23/19 Following Prescrptions Were Given to Patient: Acyclovir [Zovirax] 1 applic TOPICAL 5X/DAY #1 tube Transmission Status: Received by [facility] Primary Care Physician: Xochitl Horton DO [Primary Care Provider] - Please follow up with your Primary Care Physician in: 2 weeks Please Follow Up With: Rakesh Hernandez MD When: 2 weeks Medical Necessity - Tobacco Use Smoking Status: Current every day smoker Tobacco Use: Cigarettes Meaningful Use Info Meaningful Use Diagnoses (Choose all that apply): None applicable <Shani Junior - Last Filed: 04/23/19 15:50> Discharge Date and Diagnosis - Secondary Discharge Diagnosis Chronic Problems Hypertension (Chronic) CAD (coronary artery disease) (Chronic) Hospital Course and Treatment Summary of Care Provided: Patient seen by Wayne Balbuena PA-C under my supervision The patient is a 54 year old M with a history of hypertension and CAD. He was admitted to the ED on 04/21/2019 with a complaint of dizziness for 3 days which worsened with standing. Patient states he had been out in the heat mowing for several hours and had not been drinking fluids. On admission, he was found to be hypotensive with positive orthostatics. BUN and creatinine were markedly elevated with creatinine being above 4. His baseline was normal. He was st arted on IV fluids, his antihypertensives were held. He was admitted and managed for GABRIELA due to orthostatic hypotension. CT of the brain done was negative. 2D echo showed EF of 60% with no diastolic dysfunction. Renal ultrasound showed a right pelvic cyst and also showed a slightly thickened bladder wall which may have been due to poor distention. Patient's creatinine trended down and was 1.4 on day of discharge. Nephrology was also consulted. He remained stable and was discharged home on 04/23/2019. Of note, patient was on lisinopril and this was discontinued. Patient was also borderline remain in the 100s and 90s systolically patient felt stable. No blood pressure medications were therefore continued. Patient is follow-up with his primary care doctor for resumption of blood pressure medications as deemed appropriate. His follow-up with his primary care doctor within 1 week and also to follow-up with nephrology. Patient seen and examined prior to discharge. He had no complaints and was eager to be discharged. He had no complaints and review of systems was otherwise negative. Labs and vitals reviewed. Home medications reviewed and reconciled. o/e: Vital Signs Height 5 ft 8 in Weight: 205 lb 11.06 oz Weight in Pounds 205.7 lbs Pulse Ox 96 Temperature 98.3 F Pulse Rate [Standing] 64 Pulse Rate [Sitting] 70 Pulse Rate [Lying] 65 Pulse Rate 59 Respiratory Rate 18 Blood Pressure [Standing] 113/72 Blood Pressure [Sitting] 105/70 Blood Pressure [Lying] 119/63 Blood Pressure 96/56 Blood Pressure Position Semi-Fowlers [] General: Alert, Oriented x3, Cooperative HEENT: Atraumatic, PERRLA, EOMI, Normocephalic Neck: Supple, No JVD, Negative Carotid Bruits Lungs: Clear to auscultation, Normal air movement Cardiovascular: Regular rate, No murmurs Abdomen: Bowel Sounds Present, Soft, Non Tender, no organomegaly Extremities: No edema, Capillary Refill Less than 3 Seconds Skin: No rashes, No breakdown Musculoskeletal: No Tenderness to Palpation of Joints or Extremities Neurological: Cranial nerves II-XII grossly intact Psych/Mental Status: Normal Affect, Appropriate, Alert and oriented to time, place, person, mood and affect Patient counseled to keep well-hydrated in this hot weather. Plan is for discharge home today. Rest as per Wayne Balbuena PA-C's note which I have reviewed and endorsed. - Physical Exam Vital Signs Temp Pulse Resp BP Pulse Ox 98.3 F 59 L 18 96/56 L 96 04/23/19 09:47 04/23/19 09:47 04/23/19 09:47 04/23/19 09:47 04/23/19 09:47 Oxygen Delivery Method Room Air Weight: 205 lb 11.06 oz Body Mass Index (BMI) 29.5 Intake and Output for Last 24 Hours 04/21/19 04/22/19 04/23/19 23:59 23:59 23:59 Intake Total 4410.2 / 4410.2 848 / 848 Output Total 1725 / 1725 850 / 850 Balance 2685.2 / 2685.2 -2 / -2 Laboratory Tests Past 24 Hrs 04/23/19 05:30 Sodium 142 Potassium 4.7 Chloride 115 H Carbon Dioxide 22.0 Anion Gap 5 BUN 35 H Creatinine 1.44 H Estim Creat Clear Calc 56.08 Est GFR (MDRD) Af Amer 65 Est GFR (MDRD) Non-Af 54 L BUN/Creatinine Ratio 24.3 H Glucose 85 Calcium 7.8 L Disposition: Home Minutes spent on discharge:: 35 Patient Condition:: Stable Code Visit Inpatient E&M: 98488 Disch Hosp
== END 2019-04-23 11:28 | disposition home or self-care (01) | DRG 469 ==
LOC: ED 21:17 → PCU 23:01
PROVIDERS: Physician Assistant; Admitting Provider Internal Medicine; Emergency Provider Emergency Medicine; Family Provider Family Medicine; PCP Family Medicine; Visit Provider Student in an Organized Health Care Education/Training Program
DX: N17.9 Acute kidney failure, unspecified (principal); I25.10 Atherosclerotic heart disease of native coronary artery without angina pectoris; E86.0 Dehydration; I95.1 Orthostatic hypotension; I10 Essential (primary) hypertension; F17.210 Nicotine dependence, cigarettes, uncomplicated; I25.2 Old myocardial infarction; Z86.73 Personal history of transient ischemic attack (TIA), and cerebral infarction without residual deficits
CPT/HCPCS: 36415; 70450; 71045; 76770; 80048; 80053; 80061; 82570; 84300; 84484; 85025; 93005; 93306; 97161; 97802; 99285; 99406; J7030; J7040; Q9957; A4216; C8929